=== PATIENT | female | born 1960 | race African-American/Black ===

== ENCOUNTER 2021-10-01 00:40 | Outpatient (CLI) | payer MEDICARE | END 2021-10-01 00:41 | disposition left against medical advice (07) | LOC: EMS 00:40 | DX: M79.652 Pain in left thigh (principal); W22.8XXA Striking against or struck by other objects, initial encounter; Y93.H2 Activity, gardening and landscaping; Y92.009 Unspecified place in unspecified non-institutional (private) residence as the place of occurrence of the external cause ==

== ENCOUNTER 2021-10-01 17:22 | Emergency (ER) | payer MEDICARE ==
--- NOTE | 2021-10-01 17:42 | ED Physician Documentation ---
PD HPI ABD PAIN - Stated complaint Stated Complaint: L SIDE PX - Chief complaint Chief Complaint: Trauma Abd - History obtained from History obtained from: Patient - Additional information Additional information: 61-year-old woman with history of diabetes was cutting branches yesterday and a large branch hit her in the left mid abdomen and she had increasing pain there overnight. Sensation of difficulty urinating but no hematuria. She is nauseous with it. She declines pain and/or nausea medicine on initial evaluation. Review of Systems Constitutional: reports: Reviewed and negative Eyes: reports: Reviewed and negative Nose: reports: Reviewed and negative Throat: reports: Reviewed and negative Cardiac: reports: Reviewed and negative PD PAST MEDICAL HISTORY - Present Medications Home Medications: Ambulatory Orders Medication Instructions Recorded Confirmed Lisinopril [Zestril] 10 mg PO DAILY 10/01/21 10/01/21 Simvastatin [Zocor] 20 mg PO DAILY 10/01/21 10/01/21 metFORMIN [Glucophage] 1,000 mg PO BIDWM 10/01/21 10/01/21 - Allergies Allergies/Adverse Reactions: Allergies Allergy/AdvReac Type Severity Reaction Status Date / Time amoxicillin Allergy Anxiety Verified 10/01/21 17:26 PD ED PE NORMAL - Vitals Vital signs reviewed: Yes - General General: Alert and oriented X 3, No acute distress - Abdomen Abdomen: Normal bowel sounds, Soft, Other (Tender in the left mid abdomen and left lower quadrant without surgical signs, there is no rib tenderness.) - Back Back: No CVA TTP, No spinal TTP - Derm Derm: Normal color, Warm and dry - Extremities Extremities: No deformity, No tenderness to palpate, Normal ROM s pain, No edema, No calf tenderness / cord - Neuro Neuro: Alert and oriented X 3, Normal speech Results - Vitals Vitals: Vital Signs - 24 hr 10/01/21 10/01/21 17:26 19:09 Temperature 36.5 C 36.4 C L Heart Rate 80 61 Respiratory 16 16 Rate Blood Pressure 145/63 H 129/58 L O2 Saturation 100 100 Oxygen O2 Source Room air - Labs Labs: Laboratory Tests 10/01/21 10/01/21 17:55 17:55 WBC 6.2 RBC 4.94 Hgb 13.5 Hct 43.0 MCV 87.0 MCH 27.3 MCHC 31.4 L RDW 13.6 Plt Count 203 MPV 9.9 Neut # (Auto) 3.0 Lymph # (Auto) 2.5 [place] # (Auto) 0.6 Eos # (Auto) 0.1 Baso # (Auto) 0.0 Absolute Nucleated RBC 0.00 Nucleated RBC % 0.0 Sodium 139 Potassium 3.9 Chloride 105 Carbon Dioxide 25 Anion Gap 9.0 BUN 13 Creatinine 0.7 Estimated GFR (MDRD) 85 L Glucose 155 H Calcium 9.5 - Rads (name of study) CT abdomen and pelvis, no trauma but incidental findings including fatty liver and pelvic varicose veins were discussed with patient Radiology: EMP read contemporaneously PD MEDICAL DECISION MAKING - ED course ED course: 61-year-old woman with an abdominal trauma with worsening pain. CT negative for acute findings. She declined medications for symptoms. Departure - Departure Disposition: 01 Home, Self Care Clinical Impression: Abdominal wall contusion Qualifiers: Encounter type: initial encounter Qualified Code(s): S30.1XXA - Contusion of abdominal wall, initial encounter Condition: Good Record reviewed to determine appropriate education?: Yes Instructions: ED Abdominal Injury Blunt Benign Comments: As discussed, the CT does not show any evidence of serious trauma. We did find the have fatty liver which you are already aware of and to the varicose veins in your pelvis. No specific follow-up is required for those. Return if worsening or if not better over the next couple of days. Discharge Date/Time: 10/01/21 19:12
[2021-10-01] MEDS ORDERED: IOVERSOL 320 100 ML VIAL IVP ONE ×2 (17:55→18:38)
[2021-10-01 18:04] LABS: BASOPHILS % (AUTO) 0.5 %; EOSINOPHILS # (AUTO) 0.1 10^3/uL (0.0-0.7); EOSINOPHILS % (AUTO) 1.6 %; HGB - HEMOGLOBIN 13.5 g/dL (12.0-16.0); LYMPHOCYTES # (AUTO) 2.5 10^3/uL (1.5-3.5); MEAN CORPUSCULAR HEMOGLOBIN 27.3 pg (27.0-31.0); MEAN CORPUSCULAR HGB CONC 31.4 g/dL (32.0-36.0); MEAN PLATELET VOLUME 9.9 fL (7.9-10.8); MONOCYTES # (AUTO) 0.6 10^3/uL (0.0-1.0); MONOCYTES % (AUTO) 8.9 %; NEUTROPHILS % (AUTO) 48.8 %; PLT - PLATELET COUNT 203 10^3/uL (130-450); RED BLOOD COUNT 4.94 10^6/uL (4.20-5.40); RED CELL DISTRIBUTION WIDTH 13.6 % (12.0-15.0); WHITE BLOOD COUNT 6.2 x10^3/uL (4.8-10.8)
[2021-10-01 18:12] LABS: CALCIUM 9.5 mg/dL (8.5-10.3); CREATININE 0.7 mg/dL (0.4-1.0); POTASSIUM 3.9 mmol/L (3.5-5.0)
--- NOTE | 2021-10-01 18:52 | CT Report ---
PROCEDURE: Abdomen/Pelvis W INDICATIONS: IV only, left abdominal trauma CONTRAST: IV CONTRAST: Optiray 320 ml: 100 PO CONTRAST: *NO PO CONTRAST TECHNIQUE: After the administration of intravenous contrast, 5 mm thick sections acquired from the diaphragms to the symphysis. 5 mm thick coronal and sagittal reformats were acquired. For radiation dose reducti on, the following was used: automated exposure control, adjustment of mA and/or kV according to ousmane ent size. COMPARISON: None. FINDINGS: Image quality: Excellent. ABDOMEN: Lung bases: Lung bases are clear. Heart size is normal. Solid organs: Mild hepatomegaly. Moderate diffuse hepatic steatosis. Spleen is unremarkable. Gallblad celeste is unremarkable. Biliary system is non dilated. Pancreas enhances normally. No adrenal nodules . Kidneys demonstrate normal size and enhancement, without hydronephrosis. Peritoneum and bowel: Bowel loops demonstrate normal wall thickness and caliber. No free fluid or a ir. Mild diverticulosis. Nodes and vessels: No retroperitoneal or mesenteric adenopathy by size criteria. Aorta and inferior vena cava are normal in size. 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 Miscellaneous: No ventral hernias. PELVIS: Genitourinary: Bladder wall thickness is normal. Miscellaneous: No inguinal hernias or adenopathy. Bones: No suspicious bony lesions. No vertebral body compression fractures. IMPRESSION: 1. No evidence of acute abdominal process. 2. No findings indicative of significant sequelae of acute abdominal trauma. 3. Mild hepatomegaly, moderate diffuse hepatic steatosis. 4. 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 Reviewed by: Subhash Hernandez MD on 10/01/2021 6:51 PM PDT Approved by: Subhash Hernandez MD on 10/01/2021 6:51 PM PDT Station ID: [id number]
[2021-10-01 19:09] VITALS: BP 129/58
== END 2021-10-01 19:12 | disposition home or self-care (01) ==
LOC: ED 17:22
DX: S30.1XXA Contusion of abdominal wall, initial encounter (principal); W20.8XXA Other cause of strike by thrown, projected or falling object, initial encounter; Y93.H2 Activity, gardening and landscaping
CPT/HCPCS: 36415; 74177; 80048; 85025; 99282; 99284; Q9967

== ENCOUNTER 2021-10-30 02:36 | Emergency (ER) | payer MEDICARE ==
[2021-10-30] MEDS ORDERED: METOCLOPRAMIDE 10 MG/2 ML VIAL IVP STA (02:59)
[2021-10-30] MEDS ORDERED: SODIUM CHLORIDE 0.9% 1,000 ML IV STA (02:59)
[2021-10-30] MEDS ORDERED: KETOROLAC 30 MG/ML VIAL IVP STA (02:59)
[2021-10-30] MEDS ORDERED: diphenhydrAMINE INJ 50 MG/ML VIAL IVP STA (03:00)
--- NOTE | 2021-10-30 03:21 | ED Physician Documentation ---
PD HPI HEADACHE - Stated complaint Stated Complaint: HEADACHE - Chief complaint Chief Complaint: Neuro - History obtained from History obtained from: Patient - Additional information Additional information: Patient is a 61-year-old female with a history significant for migraines, hypertension, hyperlipidemia, diabetes presenting for evaluation of a headache since yesterday morning. Patient reports that the night before she had not slept well and woke up with a pressure type headache around the front of her head. She has not taken anything for the headache today. She reports mild associated nausea. She reports having migraines in the past but it is been almost 20 years. She says that this is not the worst headache of her life. She Denies any head trauma and does not take blood thinners. Nothing makes the headache better or worse. She was having trouble sleeping again tonight and presented to the emergency department for evaluation. She denies recent illness with fever, cough, congestion, chest pain or difficulty breathing. No abdominal pain, neck pain or back pain. Review of Systems Constitutional: denies: Fever Nose: denies: Congestion Cardiac: denies: Chest pain / pressure, Palpitations Respiratory: denies: Dyspnea, Cough GI: reports: Nausea. denies: Abdominal Pain, Vomiting : denies: Dysuria Skin: denies: Rash Neurologic: reports: Headache. denies: Head injury PD PAST MEDICAL HISTORY - Past Medical History Past Medical History: Yes Cardiovascular: Hypertension, High cholesterol Respiratory: None, Asthma Neuro: Migraines Endocrine/Autoimmune: Type 2 diabetes GI: GERD CRO: None : None HEENT: None, Other Psych: None Musculoskeletal: Osteoporosis Derm: None - Past Surgical History Past Surgical History: Yes Ortho: Shoulder arthroplasty /CRO: Other - Present Medications Home Medications: Ambulatory Orders Medication Instructions Recorded Confirmed Lisinopril [Zestril] 10 mg PO DAILY 10/01/21 10/30/21 Simvastatin [Zocor] 20 mg PO DAILY 10/01/21 10/30/21 metFORMIN [Glucophage] 1,000 mg PO BIDWM 10/01/21 10/30/21 - Allergies Allergies/Adverse Reactions: Allergies Allergy/AdvReac Type Severity Reaction Status Date / Time amoxicillin Allergy Anxiety Verified 10/01/21 17:26 - Social History Does the pt smoke?: No Smoking Status: Never smoker Does the pt drink ETOH?: No Does the pt have substance abuse?: No - Immunizations Immunizations are current?: Yes - POLST Patient has POLST: No PD ED PE NORMAL - General General: Alert and oriented X 3, No acute distress, Well developed/nourished - HEENT HEENT: Atraumatic, PERRL, EOMI, Ears normal, Pharynx benign - Neck Neck: Supple, no meningeal sign, No bony TTP - Cardiac Cardiac: RRR, No murmur, Strong equal pulses - Respiratory Respiratory: No respiratory distress, Clear bilaterally - Abdomen Abdomen: Normal bowel sounds, Soft, Non tender - Derm Derm: Normal color - Extremities Extremities: No deformity - Neuro Neuro: Alert and oriented X 3, pharmacometrician 2-12 intact, No motor deficit, No sensory deficit, Normal speech, Other (Normal unassisted gait) - Psych Psych: Normal mood Results - Vitals Vitals: Vital Signs - 24 hr 10/30/21 10/30/21 10/30/21 02:43 03:22 03:50 Temperature 36.7 C Heart Rate 68 62 59 L Respiratory 18 14 18 Rate Blood Pressure 153/76 H 125/66 138/72 H O2 Saturation 95 100 99 10/30/21 04:15 Temperature 37.0 C Heart Rate 64 Respiratory 16 Rate Blood Pressure 136/70 H O2 Saturation 100 Oxygen O2 Source Room air PD MEDICAL DECISION MAKING - ED course Complexity details: re-evaluated patient, d/w patient ED course: Patient presenting for evaluation of headache. Has a history of migraines. This is not her worst headache. Neuro exam is normal. Doubt meningitis, subarachnoid hemorrhage, stroke, intracranial bleed, Dissection.Patient had significant improvement in her symptoms with migraine cocktail. She was advised on strict return precautions. She was ambulatory at discharge. 0320 - Patient is driving her home and not able to get another ride. Nurses already given Toradol and Reglan.Patient declining Benadryl as it may cause drowsiness. 0358 - Feeling better Departure - Departure Disposition: 01 Home, Self Care Clinical Impression: Headache Qualifiers: Headache type: tension-type Headache chronicity pattern: acute headache Intractability: not intractable Qualified Code(s): G44.209 - Tension-type headache, unspecified, not intractable Condition: Stable Instructions: ED Cephalgia Unspecified Comments: Luciana - You were evaluated for a headache today. You received medications through an IV Help you with your pain. 1 of these medications was an anti- inflammatory medication similar to ibuprofen. The other was a medication to help with nausea.Received IV fluids. Please continue to hydrate yourself And you can also use medications such as ibuprofen or Tylenol if the pain is starting to come back. Please get plenty of rest. Please follow-up with your primary care doctor. Please return to the emergency department with worsening or any concerning symptoms such as fever, neck stiffness, vomiting. Discharge Date/Time: 10/30/21 04:20
[2021-10-30 04:21] VITALS: BP 136/70
== END 2021-10-30 04:20 | disposition home or self-care (01) ==
LOC: ED 02:36
DX: G44.209 Tension-type headache, unspecified, not intractable (principal); I10 Essential (primary) hypertension
CPT/HCPCS: 96374; 96375; 99282; 99283; J1200; J2765

== ENCOUNTER 2022-01-09 20:41 | Emergency (ER) | payer MEDICARE ==
[2022-01-09] MEDS ORDERED: METOCLOPRAMIDE 10 MG/2 ML VIAL IVP STA (21:11)
[2022-01-09] MEDS ORDERED: KETOROLAC 15 MG/ML VIAL IVP STA (21:11)
[2022-01-09 21:24] LABS: BILIRUBIN,URINE NEGATIVE (NEGATIVE); GLUCOSE, URINE (UA) NEGATIVE (NEGATIVE); KETONES,URINE (UA) NEGATIVE (NEGATIVE); LEUKOCYTE ESTERASE, URINE SMALL (NEGATIVE); NITRITE,URINE NEGATIVE (NEGATIVE); OCCULT BLOOD,URINE NEGATIVE (NEGATIVE); PROTEIN,URINE NEGATIVE (NEGATIVE); UROBILINOGEN,URINE 0.2 (NORMAL) E.U./dL (NORMAL)
--- NOTE | 2022-01-09 21:28 | ED Physician Documentation ---
History of Present Illness - Stated complaint Stated Complaint: HEADACHE - Chief complaint Chief Complaint: Neuro - History obtained from History obtained from: Patient - History of Present Illness Timing: How many days ago (5) - Additonal information Additional information: 61-year-old female presents for several complaints. Patient states that she has had a left-sided headache for the last 5 days as well as left-sided facial tingling. Patient is additionally complaining of concentrated smelling urine. She states that she initially thought that it was related to her GERD, and spoke with her GI doctor about it, however he told her at that time he did not think it was related to her acid reflux. Patient went to an outside ED earlier today, however the wait was too long and she left and presented here instead. Patient states "it feels that my brain is not getting enough oxygen". She states that when she tried to go to sleep she had a startling sensation and felt like she was out of her body. No medications taken at home for symptoms. Denies blurred vision, slurred speech, numbness, weakness, difficulty ambulating, other complaints at this time. Review of Systems Ten Systems: 10 systems reviewed and negative Constitutional: denies: Fever, Chills, Myalgias Eyes: denies: Loss of vision, Photophobia Ears: denies: Loss of hearing, Ear pain, Drainage/discharge Cardiac: denies: Palpitations, Pedal edema Respiratory: denies: Dyspnea, Cough, Wheezing GI: denies: Abdominal Pain, Nausea, Vomiting, Constipation, Diarrhea : reports: Dysuria. denies: Frequency, Hesitancy, Unable to Void Skin: denies: Rash Musculoskeletal: denies: Neck pain, Back pain, Extremity pain Neurologic: reports: Headache, Other (facial tingling). 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: Other - Present Medications Home Medications: Ambulatory Orders Medication Instructions Recorded Confirmed Lisinopril [Zestril] 10 mg PO DAILY 10/01/21 12/28/21 Simvastatin [Zocor] 20 mg PO DAILY 10/01/21 12/28/21 metFORMIN [Glucophage] 1,000 mg PO BIDWM 10/01/21 12/28/21 Alendronate Sodium 35 mg PO Q7D 12/28/21 12/28/21 Lansoprazole [Prevacid] 30 mg PO BID 12/28/21 12/28/21 Sucralfate [Carafate] 1 gm PO ACHS #60 tablet 12/28/21 - Allergies Allergies/Adverse Reactions: Allergies Allergy/AdvReac Type Severity Reaction Status Date / Time amoxicillin Allergy Anxiety Verified 12/28/21 21:10 - Social History Does the pt smoke?: No Smoking Status: Never smoker Does the pt drink ETOH?: No Does the pt have substance abuse?: No - Immunizations Immunizations are current?: Yes - POLST Patient has POLST: No PD ED PE NORMAL - Vitals Vital signs reviewed: Yes - General General: Alert and oriented X 3, No acute distress, Well developed/nourished - HEENT HEENT: Atraumatic, PERRL, EOMI, Ears normal - Neck Neck: Supple, no meningeal sign, No bony TTP, No adenopathy - Cardiac Cardiac: RRR, No rub, Strong equal pulses - Respiratory Respiratory: No respiratory distress, Clear bilaterally - Abdomen Abdomen: Soft, Non tender, Non distended - Back Back: No CVA TTP, No spinal TTP - Derm Derm: Normal color, Warm and dry, No rash - Extremities Extremities: No deformity, No tenderness to palpate, Normal ROM s pain, No edema, No calf tenderness / cord - Neuro Neuro: Alert and oriented X 3, recycling manager 2-12 intact, No motor deficit, No sensory deficit, Normal speech - Psych Psych: Normal mood, Normal affect Results - Vitals Vitals: Vital Signs - 24 hr 01/09/22 01/09/22 01/09/22 20:45 20:49 22:33 Temperature 36.3 C L 36.5 C 36.5 C Heart Rate 71 71 68 Respiratory 18 18 16 Rate Blood Pressure 163/72 H 163/72 H 140/72 H O2 Saturation 97 97 98 Oxygen O2 Source Room air - EKG (time done) 2120 Rate: Rate (enter#) (65) Rhythm: NSR [place]: Normal Intervals: Normal DC QRS: Normal - Labs Labs: Laboratory Tests 01/09/22 01/09/22 01/09/22 21:16 21:36 21:36 WBC 6.1 RBC 5.10 Hgb 13.8 Hct 44.3 MCV 86.9 MCH 27.1 MCHC 31.2 L RDW 13.7 Plt Count 184 MPV 9.8 Neut # (Auto) 2.5 Lymph # (Auto) 2.8 [place] # (Auto) 0.6 Eos # (Auto) 0.2 Baso # (Auto) 0.0 Absolute Nucleated RBC 0.00 Nucleated RBC % 0.0 Sodium 143 Potassium 3.9 Chloride 106 Carbon Dioxide 29 Anion Gap 8.0 BUN 15 Creatinine 0.8 Estimated GFR (MDRD) 88 L Glucose 148 H Calcium 9.6 Total Bilirubin 0.6 AST 30 ALT 29 Alkaline Phosphatase 110 Total Protein 7.6 Albumin 4.1 Globulin 3.5 Albumin/Globulin Ratio 1.2 Urine Color YELLOW Urine Clarity CLEAR Urine pH 6.0 Ur Specific [place] >=1.030 H Urine Protein NEGATIVE Urine Glucose (UA) NEGATIVE Urine Ketones NEGATIVE Urine Occult Blood NEGATIVE Urine Nitrite NEGATIVE Urine Bilirubin NEGATIVE Urine Urobilinogen 0.2 (NORMAL) Ur Leukocyte Esterase SMALL H Urine RBC 0-5 Urine WBC 6-10 H Ur Squamous Epith Cells MANY Squamous H Urine Bacteria Few Ur Microscopic Review INDICATED Urine Culture Comments NOT INDICATED PD MEDICAL DECISION MAKING - ED course Complexity details: reviewed results, re-evaluated patient, considered differential, d/w patient ED course: Patient presenting for numerous symptoms. Reports headache and facial numbness/tingling, however NIH is 0, no focal neurologic deficit noted on exam. Additionally patient symptoms have been greater then 1 week. Not stroke alert candidate or tPA candidate. Will treat headache and will scan brain given that patient has had 1 week of headache and denies history of regular headaches. Medications given for headache. Patient states that it feels like her brain is not getting enough oxygen, however vital signs are completely within normal limits and there is no evidence of hypoxemia at this time. Labs are unremarkable. CT brain shows possible remote infarct, however not consistent with patient's current symptoms. No previous CT scans for comparison. At this time we do not have MRI at our facility. Patient was notified of her abnormal CT brain results, she was counseled to follow-up with her primary care physician for further investigation of this matter. Counseled Tylenol and Motrin as needed for symptoms, counseled plenty of fluids and rest. Departure - Departure Disposition: 01 Home, Self Care Clinical Impression: Abnormal brain CT Headache Qualifiers: Headache type: unspecified Headache chronicity pattern: unspecified pattern Intractability: not intractable Qualified Code(s): R51.9 - Headache, unspecified Condition: Stable Instructions: ED Headache Tension Comments: Take Tylenol and Motrin at home as needed for headache. Drink plenty of fluids, get plenty of rest. Your brain CT today showed a possible old stroke, however I do not think that this is related to your symptoms today. Please follow up immediately with your primary care physician for further investigation of your abnormal CT findings Discharge Date/Time: 01/09/22 22:33
[2022-01-09 21:30] LABS: CLARITY,URINE CLEAR (CLEAR); RBC,URINE 0-5 /HPF (0-5)
[2022-01-09 21:31] LABS: BACTERIA,URINE Few /HPF (None Seen); SQUAMOUS EPITHELIAL CELL,UR MANY Squamous (<= Few)
--- NOTE | 2022-01-09 21:38 | XRAY Report ---
PROCEDURE: Chest 1 View X-Ray INDICATIONS: 'NOT GETTING ENOUGH OXYGEN' TECHNIQUE: One view of the chest was acquired. COMPARISON: None FINDINGS: Surgical changes and devices: None. Lungs and pleura: No pleural effusions or pneumothorax. Lungs are clear. Mediastinum: Mediastinal contours appear normal. Heart size is normal. Bones and chest wall: No suspicious bony lesions. Overlying soft tissues appear unremarkable. IMPRESSION: No acute cardiopulmonary process demonstrated radiographically. Reviewed by: Twin Quinonez MD on 01/09/2022 9:36 PM PDT Approved by: Twin Quinonez MD on 01/09/2022 9:36 PM PDT Station ID: [id number]
[2022-01-09 21:43] LABS: BASOPHILS % (AUTO) 0.3 %; EOSINOPHILS # (AUTO) 0.2 10^3/uL (0.0-0.7); EOSINOPHILS % (AUTO) 2.6 %; HCT - HEMATOCRIT 44.3 % (37.0-47.0); HGB - HEMOGLOBIN 13.8 g/dL (12.0-16.0); LYMPHOCYTES # (AUTO) 2.8 10^3/uL (1.5-3.5); LYMPHOCYTES % (AUTO) 46.1 %; MEAN CORPUSCULAR HEMOGLOBIN 27.1 pg (27.0-31.0); MEAN CORPUSCULAR HGB CONC 31.2 g/dL (32.0-36.0); MEAN CORPUSCULAR VOLUME 86.9 fL (81.0-99.0); MEAN PLATELET VOLUME 9.8 fL (7.9-10.8); MONOCYTES # (AUTO) 0.6 10^3/uL (0.0-1.0); MONOCYTES % (AUTO) 9.6 %; NEUTROPHILS # (AUTO) 2.5 10^3/uL (1.5-6.6); NEUTROPHILS % (AUTO) 41.2 %; PLT - PLATELET COUNT 184 10^3/uL (130-450); RED CELL DISTRIBUTION WIDTH 13.7 % (12.0-15.0); WHITE BLOOD COUNT 6.1 x10^3/uL (4.8-10.8)
[2022-01-09 21:56] LABS: ALBUMIN 4.1 g/dL (3.2-5.5); ALBUMIN/GLOBULIN RATIO 1.2 (1.0-2.2); BILIRUBIN,TOTAL 0.6 mg/dL (0.2-1.0); CALCIUM 9.6 mg/dL (8.5-10.3); CREATININE 0.8 mg/dL (0.4-1.0); POTASSIUM 3.9 mmol/L (3.5-5.0); TOTAL PROTEIN 7.6 g/dL (6.7-8.2)
--- NOTE | 2022-01-09 22:05 | CT Report ---
PROCEDURE: HEAD WO INDICATIONS: Headache, face tingling for one week TECHNIQUE: Noncontrast 4.5 mm thick angled axial sections acquired from the foramen magnum to the vertex. For r adiation dose reduction, the following was used: automated exposure control, adjustment of mA and/or kV according to patient size. COMPARISON: None. FINDINGS: There is no acute intracranial hemorrhage, abnormal extra-axial fluid collection, mass effect, or mid line shift. Normal ventricular caliber and position. Patent basilar cisterns. Donnelly-white matter diffe rentiation is maintained. Possible remote tiny right caudate lacunar infarct. Paranasal sinuses and m astoid air cells clear where visualized. No acute orbital abnormality in the [id number]. IMPRESSION: No acute intracranial finding. Reviewed by: Twin Quinonez MD on 01/09/2022 10:04 PM PDT Approved by: Twin Quinonez MD on 01/09/2022 10:04 PM PDT Station ID: [id number]
[2022-01-09 22:35] VITALS: BP 140/72
== END 2022-01-09 22:33 | disposition home or self-care (01) ==
LOC: ED 20:41
DX: R51.9 Headache, unspecified (principal); R94.8 Abnormal results of function studies of other organs and systems; I10 Essential (primary) hypertension; E11.9 Type 2 diabetes mellitus without complications; Z79.4 Long term (current) use of insulin
CPT/HCPCS: 36415; 70450; 71045; 80053; 81001; 85025; 93005; 96374; 96375; 99282; 99284; J2765; 81003; 87086

== ENCOUNTER 2022-07-08 15:43 | Emergency (ER) | payer MEDICARE ==
[2022-07-08 15:59] VITALS: BP 160/73
--- NOTE | 2022-07-08 16:20 | ED Physician Documentation ---
History of Present Illness - Stated complaint Stated Complaint: DIGESTED OVEN OFF SPRAY - Chief complaint Chief Complaint: Abd Pain - History obtained from History obtained from: Patient - Additonal information Additional information: Patient is a 62-year-old female presenting for evaluation of accidental ingestion of easy off oven carbon cleaner this morning around 10:00. She had sprayed a pot and left it in her kitchen 2 days ago. This morning her went to make biscuits and gravy and rinsed out the pot but per likely did not use soap and clean all the residue from the oven carbon cleaner and used it to make the sausage gravy. When she was eating her breakfast she thought there was an abnormal taste to it but was able to eat it without issue. Her also ate the same food. This afternoon when she went back into the kitchen she realized that he had used the pot that she had used the oven carbon cleaner on and was concerned as he does not usually wash dishes well. Her again ate the same food and denies any symptoms and did not want to come to the emergency department. 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: Other - Present Medications Home Medications: Ambulatory Orders Medication Instructions Recorded Confirmed Lisinopril [Zestril] 10 mg PO DAILY 10/01/21 12/28/21 Simvastatin [Zocor] 20 mg PO DAILY 10/01/21 12/28/21 metFORMIN [Glucophage] 1,000 mg PO BIDWM 10/01/21 12/28/21 Alendronate Sodium 35 mg PO Q7D 12/28/21 12/28/21 Lansoprazole [Prevacid] 30 mg PO BID 12/28/21 12/28/21 Sucralfate [Carafate] 1 gm PO ACHS #60 tablet 12/28/21 - Allergies Allergies/Adverse Reactions: Allergies Allergy/AdvReac Type Severity Reaction Status Date / Time amoxicillin Allergy Anxiety Verified 07/08/22 15:58 - Social History Does the pt smoke?: No Smoking Status: Never smoker Does the pt drink ETOH?: No Does the pt have substance abuse?: No - Immunizations Immunizations are current?: Yes - POLST Patient has POLST: No PD ED PE NORMAL - General General: Alert and oriented X 3, No acute distress, Well developed/nourished - HEENT HEENT: Atraumatic, Moist mucous membranes, Pharynx benign (No oral lesions or signs of caustic injury) - Neck Neck: Supple, no meningeal sign - Cardiac Cardiac: RRR, No murmur - Respiratory Respiratory: No respiratory distress, Clear bilaterally - Abdomen Abdomen: Soft, Non tender - Derm Derm: Warm and dry - Neuro Neuro: Normal speech Results - Vitals Vitals: Vital Signs - 24 hr 07/08/22 15:54 Temperature 36.4 C L Heart Rate 64 Respiratory 16 Rate Blood Pressure 160/73 H O2 Saturation 98 Oxygen O2 Source Room air PD Medical Decision Making - ED course ED course: Patient evaluated after an accidental ingestion of oven carbon cleaner. This occurred approximately 6 hours ago. Patient appears asymptomatic and has no abnormal physical exam findings. No signs of caustic injury on oral exam.Abdominal exam is benign.Poison control was contacted and also had low concerns that there would be serious injury from this accidental ingestion.Patient counseled to continue with supportive care and advised on concerning symptoms to return for. Departure - Departure Disposition: 01 Home, Self Care Clinical Impression: Accidental ingestion of substance Condition: Stable Instructions: ED Overdose Accidental Comments: At this time there does not appear to be an adverse effects from your accidental ingestion. I would continue with your Regular diet. Return to the ER with any worsening symptoms. Discharge Date/Time: 07/08/22 16:39
== END 2022-07-08 16:39 | disposition home or self-care (01) ==
LOC: ED 15:43
DX: T65.891A Toxic effect of other specified substances, accidental (unintentional), initial encounter (principal); Y92.009 Unspecified place in unspecified non-institutional (private) residence as the place of occurrence of the external cause
CPT/HCPCS: 99281; 99282

== ENCOUNTER 2022-10-11 12:30 | Outpatient (CLI) | payer MEDICARE | END 2022-10-11 12:45 | disposition home or self-care (01) | LOC: LAB.N 12:30 | PROVIDERS: ATTEND Registered Nurse | DX: R35.0 Frequency of micturition (principal); R82.79 Other abnormal findings on microbiological examination of urine; R53.83 Other fatigue; R53.81 Other malaise; N12 Tubulo-interstitial nephritis, not specified as acute or chronic | CPT/HCPCS: 87086 ==

== ENCOUNTER 2022-10-15 17:25 | Emergency (ER) | payer MEDICARE ==
[2022-10-15 18:12] LABS: BILIRUBIN,URINE NEGATIVE (NEGATIVE); GLUCOSE, URINE (UA) NEGATIVE (NEGATIVE); KETONES,URINE (UA) NEGATIVE (NEGATIVE); LEUKOCYTE ESTERASE, URINE TRACE (NEGATIVE); NITRITE,URINE NEGATIVE (NEGATIVE); OCCULT BLOOD,URINE NEGATIVE (NEGATIVE); PROTEIN,URINE NEGATIVE (NEGATIVE); UROBILINOGEN,URINE 0.2 (NORMAL) E.U./dL (NORMAL)
[2022-10-15 18:13] LABS: CLARITY,URINE CLEAR (CLEAR)
[2022-10-15 18:17] LABS: BASOPHILS % (AUTO) 0.4 %; EOSINOPHILS # (AUTO) 0.2 10^3/uL (0.0-0.7); EOSINOPHILS % (AUTO) 2.4 %; HCT - HEMATOCRIT 45.4 % (37.0-47.0); HGB - HEMOGLOBIN 13.7 g/dL (12.0-16.0); LYMPHOCYTES # (AUTO) 3.8 10^3/uL (1.5-3.5); LYMPHOCYTES % (AUTO) 53.8 %; MEAN CORPUSCULAR HEMOGLOBIN 26.3 pg (27.0-31.0); MEAN CORPUSCULAR HGB CONC 30.2 g/dL (32.0-36.0); MEAN CORPUSCULAR VOLUME 87.1 fL (81.0-99.0); MEAN PLATELET VOLUME 9.4 fL (7.9-10.8); MONOCYTES # (AUTO) 0.7 10^3/uL (0.0-1.0); MONOCYTES % (AUTO) 10.6 %; NEUTROPHILS # (AUTO) 2.3 10^3/uL (1.5-6.6); NEUTROPHILS % (AUTO) 32.7 %; PLT - PLATELET COUNT 203 10^3/uL (130-450); RED BLOOD COUNT 5.21 10^6/uL (4.20-5.40); RED CELL DISTRIBUTION WIDTH 13.6 % (12.0-15.0)
[2022-10-15 18:20] LABS: BACTERIA,URINE Few /HPF (None Seen); RBC,URINE 0-5 /HPF (0-5); SQUAMOUS EPITHELIAL CELL,UR MANY Squamous (<= Few)
[2022-10-15 18:29] LABS: ALBUMIN 4.2 g/dL (3.2-5.5); ALBUMIN/GLOBULIN RATIO 1.2 (1.0-2.2); BILIRUBIN,TOTAL 0.4 mg/dL (0.2-1.0); CALCIUM 9.5 mg/dL (8.5-10.3); CREATININE 0.9 mg/dL (0.4-1.0); POTASSIUM 4.3 mmol/L (3.5-5.0); TOTAL PROTEIN 7.8 g/dL (6.7-8.2)
[2022-10-15] MEDS ORDERED: BUTALB/ACETAM/CAFF 50/325/40MG TABLET PO STA (19:54)
--- NOTE | 2022-10-15 19:59 | ED Physician Documentation ---
History of Present Illness - Stated complaint Stated Complaint: HEADACHE,PRESSURE AROUND EYES - Chief complaint Chief Complaint: Abd Pain - History obtained from History obtained from: Patient - History of Present Illness Timing: How many weeks ago (2) Pain level max: 6 Pain level now: 6 - Additonal information Additional information: 62-year-old female with a longstanding history of migraine headaches presents to the emergency department with a headache for the past 2 weeks. She states she took aspirin once without relief. No fevers. No chills. No trauma. No head injury. No seizure activity. Feels similar to prior migraines. She states that she was also told that she had a "kidney infection". She was started on Bactrim about 5 days ago. She states she is not having any urinary symptoms and had low back pain earlier but that is improved. No vaginal bleeding or discharge. Headache was gradual in onset, mainly on the right side, occasionally has numbness and tingling to the face, similar to prior migraines. Sometimes the numbness and tingling is on the right, sometimes is on the left. Patient had a head CT in December 2021 for similar symptoms. 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 TRANSFERRING AND BOXING: Other - Present Medications Home Medications: Ambulatory Orders Medication Instructions Recorded Confirmed Lisinopril [Zestril] 10 mg PO DAILY 10/01/21 12/28/21 Simvastatin [Zocor] 20 mg PO DAILY 10/01/21 12/28/21 metFORMIN [Glucophage] 1,000 mg PO BIDWM 10/01/21 12/28/21 Alendronate Sodium 35 mg PO Q7D 12/28/21 12/28/21 Lansoprazole [Prevacid] 30 mg PO BID 12/28/21 12/28/21 Sucralfate [Carafate] 1 gm PO ACHS #60 tablet 12/28/21 - Allergies Allergies/Adverse Reactions: Allergies Allergy/AdvReac Type Severity Reaction Status Date / Time amoxicillin Allergy Anxiety Verified 07/08/22 15:58 - Social History Does the pt smoke?: No Smoking Status: Never smoker Does the pt drink ETOH?: No Does the pt have substance abuse?: No - Immunizations Immunizations are current?: Yes - POLST Patient has POLST: No PD ED PE NORMAL - Vitals Vital signs reviewed: Yes - General General: Alert and oriented X 3, No acute distress - HEENT HEENT: Atraumatic, PERRL, EOMI, Moist mucous membranes, Pharynx benign - Neck Neck: Supple, no meningeal sign - Cardiac Cardiac: RRR, Strong equal pulses - Respiratory Respiratory: No respiratory distress, Clear bilaterally - Abdomen Abdomen: Soft, Non tender, Non distended - Back Back: No CVA TTP, No spinal TTP - Derm Derm: Warm and dry - Extremities Extremities: No edema - Neuro Neuro: Alert and oriented X 3, trench trimmer fine 2-12 intact, No motor deficit, No sensory deficit, Normal speech Eye Opening: Spontaneous Motor: Obeys Commands Verbal: Oriented GCS Score: 15 - Psych Psych: Normal mood, Normal affect Results - Vitals Vitals: Vital Signs - 24 hr 10/15/22 10/15/22 10/15/22 17:52 19:25 21:08 Temperature 36.1 C L Heart Rate 61 57 L 59 L Respiratory 16 18 20 Rate Blood Pressure 132/77 H 153/76 H 131/65 H O2 Saturation 96 100 99 Oxygen O2 Source Room air - Labs Labs: Laboratory Tests 10/15/22 10/15/22 10/15/22 18:03 18:11 18:11 WBC 7.0 RBC 5.21 Hgb 13.7 Hct 45.4 MCV 87.1 MCH 26.3 L MCHC 30.2 L RDW 13.6 Plt Count 203 MPV 9.4 Neut # (Auto) 2.3 Lymph # (Auto) 3.8 H Rush # (Auto) 0.7 Eos # (Auto) 0.2 Baso # (Auto) 0.0 Absolute Nucleated RBC 0.00 Nucleated RBC % 0.0 Sodium 142 Potassium 4.3 Chloride 106 Carbon Dioxide 28 Anion Gap 8.0 BUN 12 Creatinine 0.9 Estimated GFR (MDRD) 77 L Glucose 97 Calcium 9.5 Total Bilirubin 0.4 AST 40 ALT 39 Alkaline Phosphatase 89 Total Protein 7.8 Albumin 4.2 Globulin 3.6 Albumin/Globulin Ratio 1.2 Lipase 68 H Urine Color YELLOW Urine Clarity CLEAR Urine pH 6.0 Ur Specific [place] >=1.030 H Urine Protein NEGATIVE Urine Glucose (UA) NEGATIVE Urine Ketones NEGATIVE Urine Occult Blood NEGATIVE Urine Nitrite NEGATIVE Urine Bilirubin NEGATIVE Urine Urobilinogen 0.2 (NORMAL) Ur Leukocyte Esterase TRACE H Urine RBC 0-5 Urine WBC 6-10 H Ur Squamous Epith Cells MANY Squamous H Urine Bacteria Few Ur Microscopic Review INDICATED Urine Culture Comments NOT INDICATED PD Medical Decision Making - ED course Complexity details: reviewed results, re-evaluated patient, considered differential, d/w patient ED course: No acute findings on laboratory testing. CBC does not show any elevated white blood cell count. Chemistry does not show any significant abnormalities. Urinalysis appears contaminated. Recent urine culture showed no growth. No evidence of pyelonephritis clinically or on laboratory studies. He was given Fioricet and headache improved. She refuses any other medications for headache. We will have her follow-up with her doctor for further care. No focal neurological deficits. Patient counseled regarding signs and symptoms for which I believe and urgent re-evaluation would be necessary. Patient with good understanding of and agreement to plan and is comfortable going home at this time This document was made in part using voice recognition software. While efforts are made to proofread this document, sound alike and grammatical errors may occur. Departure - Departure Disposition: 01 Home, Self Care Clinical Impression: Migraine Qualifiers: Migraine type: unspecified Status migrainosus presence: without status migrainosus Intractability: not intractable Qualified Code(s): G43.909 - Migraine, unspecified, not intractable, without status migrainosus Condition: Good Instructions: ED Headache Migraine Follow-Up: your,doctor in 1 week [Other] Comments: Please follow-up with your doctor for further care. Go home and rest tonight. The Bactrim as your urine culture did not have any bacterial growth. Drink plenty of fluids. Return if you worsen. Discharge Date/Time: 10/15/22 21:09
[2022-10-15 21:09] VITALS: BP 131/65
== END 2022-10-15 21:09 | disposition home or self-care (01) ==
LOC: ED 17:25
DX: G43.909 Migraine, unspecified, not intractable, without status migrainosus (principal)
CPT/HCPCS: 36415; 80053; 81001; 83690; 85025; 99283; A9270; 81003; 87086

== ENCOUNTER 2022-12-02 02:47 | Emergency (ER) | payer MEDICARE ==
[2022-12-02 03:27] LABS: BILIRUBIN,URINE NEGATIVE (NEGATIVE); CLARITY,URINE CLEAR (CLEAR); GLUCOSE, URINE (UA) NEGATIVE (NEGATIVE); KETONES,URINE (UA) NEGATIVE (NEGATIVE); LEUKOCYTE ESTERASE, URINE TRACE (NEGATIVE); NITRITE,URINE NEGATIVE (NEGATIVE); OCCULT BLOOD,URINE NEGATIVE (NEGATIVE); PROTEIN,URINE NEGATIVE (NEGATIVE); UROBILINOGEN,URINE 0.2 (NORMAL) E.U./dL (NORMAL)
[2022-12-02 03:32] LABS: BACTERIA,URINE Few /HPF (None Seen); RBC,URINE 0-5 /HPF (0-5); SQUAMOUS EPITHELIAL CELL,UR FEW Squamous (<= Few)
[2022-12-02 03:34] LABS: BASOPHILS % (AUTO) 0.8 %; EOSINOPHILS # (AUTO) 0.2 10^3/uL (0.0-0.7); EOSINOPHILS % (AUTO) 3.1 %; HCT - HEMATOCRIT 43.3 % (37.0-47.0); HGB - HEMOGLOBIN 13.5 g/dL (12.0-16.0); LYMPHOCYTES # (AUTO) 2.9 10^3/uL (1.5-3.5); MEAN CORPUSCULAR HEMOGLOBIN 26.5 pg (27.0-31.0); MEAN CORPUSCULAR HGB CONC 31.2 g/dL (32.0-36.0); MEAN CORPUSCULAR VOLUME 84.9 fL (81.0-99.0); MEAN PLATELET VOLUME 9.5 fL (7.9-10.8); MONOCYTES # (AUTO) 0.5 10^3/uL (0.0-1.0); MONOCYTES % (AUTO) 9.6 %; NEUTROPHILS # (AUTO) 1.5 10^3/uL (1.5-6.6); NEUTROPHILS % (AUTO) 29.3 %; PLT - PLATELET COUNT 173 10^3/uL (130-450); RED CELL DISTRIBUTION WIDTH 13.6 % (12.0-15.0); WHITE BLOOD COUNT 5.1 x10^3/uL (4.8-10.8)
[2022-12-02 03:46] LABS: ALBUMIN 3.8 g/dL (3.2-5.5); ALBUMIN/GLOBULIN RATIO 1.2 (1.0-2.2); BILIRUBIN,TOTAL 0.4 mg/dL (0.2-1.0); CALCIUM 8.9 mg/dL (8.5-10.3); CREATININE 0.8 mg/dL (0.4-1.0); POTASSIUM 3.6 mmol/L (3.5-5.0); TOTAL PROTEIN 7.1 g/dL (6.7-8.2)
--- NOTE | 2022-12-02 04:16 | ED Physician Documentation ---
History of Present Illness - Stated complaint Stated Complaint: HEADACHE/STIFFINESS NECK - Chief complaint Chief Complaint: General - History obtained from History obtained from: Patient - Additonal information Additional information: HPI from patient. Patient c/o global headache which woke her from sleep at approximately 2 AM, associated with GERD and dizziness. Also c/o midline burning chest pain. She says she has had both similar headaches and similar chest discomfort in the past. Her symptom description is vague, often returns to saying I just feel weird, and I dont feel right. No exacerbating nor ameliorating factors Review of Systems Constitutional: denies: Fever Cardiac: reports: Chest pain / pressure. denies: Palpitations, Pedal edema Respiratory: reports: Reviewed and negative GI: reports: Nausea. 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 PRODUCTION SPECIALIST: Other - Present Medications Home Medications: Ambulatory Orders Medication Instructions Recorded Confirmed Lisinopril [Zestril] 10 mg PO DAILY 10/01/21 12/28/21 Simvastatin [Zocor] 20 mg PO DAILY 10/01/21 12/28/21 metFORMIN [Glucophage] 1,000 mg PO BIDWM 10/01/21 12/28/21 Alendronate Sodium 35 mg PO Q7D 12/28/21 12/28/21 Lansoprazole [Prevacid] 30 mg PO BID 12/28/21 12/28/21 Sucralfate [Carafate] 1 gm PO ACHS #60 tablet 12/28/21 - Allergies Allergies/Adverse Reactions: Allergies Allergy/AdvReac Type Severity Reaction Status Date / Time amoxicillin Allergy Anxiety Verified 07/08/22 15:58 - Social History Does the pt smoke?: No Smoking Status: Never smoker Does the pt drink ETOH?: No Does the pt have substance abuse?: No - Immunizations Immunizations are current?: Yes - POLST Patient has POLST: No PD ED PE NORMAL - Vitals Vital signs reviewed: Yes - General General: Alert and oriented X 3, No acute distress, Well developed/nourished - HEENT HEENT: PERRL, EOMI, Moist mucous membranes - Neck Neck: Supple, no meningeal sign - Cardiac Cardiac: RRR, No murmur, No gallop, No rub - Respiratory Respiratory: No respiratory distress, Clear bilaterally - Abdomen Abdomen: Soft, Non tender - Extremities Extremities: No edema - Neuro Neuro: Alert and oriented X 3, compensation manager 2-12 intact, No motor deficit, No sensory deficit, Normal speech Eye Opening: Spontaneous Motor: Obeys Commands Verbal: Oriented GCS Score: 15 Results - Vitals Vitals: Oxygen O2 Source Room air - EKG (time done) No standard instances EKG releavant findings:: EKG personally interpreted by author of this note. Relevant findings are: Rate: Rate (enter#) (52) Rhythm: NSR [place]: Normal Intervals: Normal [place] QRS: Normal Ischemia: Normal ST segments - Labs Labs: Microbiology 12/02/22 03:15 Urine Culture - Final Urine,Clean Catch No growth Laboratory Tests 12/02/22 12/02/22 12/02/22 02:58 03:15 03:29 WBC 5.1 RBC 5.10 Hgb 13.5 Hct 43.3 MCV 84.9 MCH 26.5 L MCHC 31.2 L RDW 13.6 Plt Count 173 MPV 9.5 Neut # (Auto) 1.5 Lymph # (Auto) 2.9 [place] # (Auto) 0.5 Eos # (Auto) 0.2 Baso # (Auto) 0.0 Absolute Nucleated RBC 0.00 Nucleated RBC % 0.0 Sodium Potassium Chloride Carbon Dioxide Anion Gap BUN Creatinine Estimated GFR (MDRD) Glucose POC Whole Bld Glucose 160 H Calcium Total Bilirubin AST ALT Alkaline Phosphatase Troponin I High Sens Total Protein Albumin Globulin Albumin/Globulin Ratio Lipase Urine Color YELLOW Urine Clarity CLEAR Urine pH 6.0 Ur Specific [place] 1.010 Urine Protein NEGATIVE Urine Glucose (UA) NEGATIVE Urine Ketones NEGATIVE Urine Occult Blood NEGATIVE Urine Nitrite NEGATIVE Urine Bilirubin NEGATIVE Urine Urobilinogen 0.2 (NORMAL) Ur Leukocyte Esterase TRACE H Urine RBC 0-5 Urine WBC 4-5 Ur Squamous Epith Cells FEW Squamous Urine Bacteria Few Ur Microscopic Review INDICATED Urine Culture Comments INDICATED 12/02/22 12/02/22 03:29 03:29 WBC RBC Hgb Hct MCV MCH MCHC RDW Plt Count MPV Neut # (Auto) Lymph # (Auto) [place] # (Auto) Eos # (Auto) Baso # (Auto) Absolute Nucleated RBC Nucleated RBC % Sodium 139 Potassium 3.6 Chloride 109 Carbon Dioxide 25 Anion Gap 5.0 L BUN 15 Creatinine 0.8 Estimated GFR (MDRD) 88 L Glucose 140 H POC Whole Bld Glucose Calcium 8.9 Total Bilirubin 0.4 AST 34 ALT 36 Alkaline Phosphatase 93 Troponin I High Sens < 2.3 L Total Protein 7.1 Albumin 3.8 Globulin 3.3 Albumin/Globulin Ratio 1.2 Lipase 80 H Urine Color Urine Clarity Urine pH Ur Specific [place] Urine Protein Urine Glucose (UA) Urine Ketones Urine Occult Blood Urine Nitrite Urine Bilirubin Urine Urobilinogen Ur Leukocyte Esterase Urine RBC Urine WBC Ur Squamous Epith Cells Urine Bacteria Ur Microscopic Review Urine Culture Comments - Rads (name of study) chest xray Relevant Findings:: Prelim report reviewed, EMP independent interpretation of test (I reviewed these images and my intepretation is no acute disease, normal heart size), See rad report CTH Relevant Findings:: Prelim report reviewed, See rad report PD Medical Decision Making - ED course Complexity details: reviewed results, re-evaluated patient, considered differential, d/w patient ED course: Tests ordered and results reviewed by me: CBC, ER abdominal panel, hs-cTn, EKG, UA, CXR, CTH. Blood tests are normal including negative hs-cTn (<2.3). CXR , EKG, and CTH also without abnormality. Etiology of patients symptoms is not apparent at this time. On reevaluation, test results are reviewed. She declines analgesia, says the headache has improved spontaneously and chest pain resolved. Advised to follow up with PMD for reevaluation. Return precautions reviewed. Departure - Departure Disposition: 01 Home, Self Care Clinical Impression: Chest pain Qualifiers: Chest pain type: unspecified Qualified Code(s): R07.9 - Chest pain, unspecified Headache Qualifiers: Headache type: unspecified Headache chronicity pattern: acute headache Intractability: not intractable Qualified Code(s): R51.9 - Headache, unspecified Condition: Good Instructions: ED Chest Pain Atypical Unkn Cause, ED Cephalgia Unspecified Comments: There were no concerning or diagnostic findings on tonight's tests, including the chest x-ray, CAT scan of your head, EKG, and the blood test. The cause of your symptoms not apparent at this time, but there is no indication, based on these test, of a dangerous/concerning underlying problem. Even though the test results are reassuring, it is important that you contact your primary care provider to arrange for next available appointment for follow- up/reevaluation. Further testing might be indicated whether or not your symptoms persist. Discharge Date/Time: 12/02/22 08:11
[2022-12-02 08:03] VITALS: BP 151/96
--- NOTE | 2022-12-02 08:07 | CT Report ---
PROCEDURE: HEAD WO INDICATIONS: headache TECHNIQUE: Noncontrast 4.5 mm thick angled axial sections acquired from the foramen magnum to the vertex. For r adiation dose reduction, the following was used: automated exposure control, adjustment of mA and/or kV according to patient size. COMPARISON: None. FINDINGS: Image quality: Excellent. CSF spaces: Basal cisterns are patent. No extra-axial fluid collections. Ventricles are normal in size and shape. Brain: No midline shift. No intracranial masses or hemorrhage. Donnelly-white matter interface is norm al. Skull and face: Calvarium and visualized facial bones are intact, without suspicious lesions. Sinuses: Visualized sinuses and mastoids are clear. IMPRESSION: No acute intracranial abnormality. Reviewed by: Jeff García MD on 12/02/2022 8:05 AM PDT Approved by: Jeff García MD on 12/02/2022 8:05 AM PDT Station ID: [id number]
--- NOTE | 2022-12-02 08:35 | XRAY Report ---
PROCEDURE: Chest 2 View X-Ray INDICATIONS: chest pain TECHNIQUE: 2 views of the chest were acquired. COMPARISON: CXR 01/09/2022. FINDINGS: Surgical changes and devices: None. Lungs and pleura: No pleural effusions or pneumothorax. Lungs are clear. Mediastinum: Mediastinal contours appear normal. Heart size is normal. Bones and chest wall: No suspicious bony lesions. Overlying soft tissues appear unremarkable. IMPRESSION: No acute cardiopulmonary process. Reviewed by: Jeff García MD on 12/02/2022 8:33 AM PDT Approved by: Jeff García MD on 12/02/2022 8:33 AM PDT Station ID: [id number]
== END 2022-12-02 08:11 | disposition home or self-care (01) ==
LOC: ED 02:47
DX: R07.9 Chest pain, unspecified (principal); R51.9 Headache, unspecified; I10 Essential (primary) hypertension; E78.00 Pure hypercholesterolemia, unspecified; E11.9 Type 2 diabetes mellitus without complications; Z79.84 Long term (current) use of oral hypoglycemic drugs; Z79.899 Other long term (current) drug therapy
CPT/HCPCS: 36415; 80053; 81001; 81003; 83690; 84484; 85025; 87086; 93005; 99283; 99284

== ENCOUNTER 2023-01-16 19:48 | Outpatient (CLI) | payer OTHER, MEDICARE | END 2023-01-16 19:49 | disposition critical access hospital (66) | LOC: EMS 19:48 | DX: R51.9 Headache, unspecified (principal) | CPT/HCPCS: A0425; A0429 ==

== ENCOUNTER 2023-01-16 20:01 | Emergency (ER) | payer OTHER, MEDICARE ==
[2023-01-16] MEDS ORDERED: METOCLOPRAMIDE 10 MG/2 ML VIAL IVP STA (20:09)
[2023-01-16] MEDS ORDERED: SODIUM CHLORIDE 0.9% 1,000 ML IV STA (20:09)
[2023-01-16] MEDS ORDERED: diphenhydrAMINE INJ 50 MG/ML VIAL IVP STA (20:09)
[2023-01-16] MEDS ORDERED: LIDOCAINE VISCOUS 2% 15 ML ORAL SYRINGE MM STA (20:10)
[2023-01-16] MEDS ORDERED: MAG HYDROX/AL HYDROX/SIMETH 30 ML UDC PO STA (20:10)
--- NOTE | 2023-01-16 21:45 | CT Report ---
PROCEDURE: HEAD WO INDICATIONS: ROGEL TECHNIQUE: Noncontrast 4.5 mm thick angled axial sections acquired from the foramen magnum to the vertex. For r adiation dose reduction, the following was used: automated exposure control, adjustment of mA and/or kV according to patient size. COMPARISON: CT head 12/02/2022. FINDINGS: Image quality: Excellent. CSF spaces: Basal cisterns are patent. No extra-axial fluid collections. Ventricles are normal in size and shape. Brain: No intracranial hemorrhage, mass, or mass effect. Donnelly-white matter interface appears preser brijesh. Skull and face: Calvarium and visualized facial bones are intact, without suspicious lesions. Sinuses: Visualized sinuses and mastoids are clear. IMPRESSION: 1. No acute intracranial abnormality. Reviewed by: Michael Faith MD on 01/16/2023 9:44 PM PDT Approved by: Michael Faith MD on 01/16/2023 9:44 PM PDT Station ID: [id number]
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
[2023-01-16 22:19] VITALS: BP 129/68
== END 2023-01-16 22:10 | disposition home or self-care (01) ==
LOC: EDUNIT# → ED 20:01
DX: R51.9 Headache, unspecified (principal); V49.50XA Passenger injured in collision with unspecified motor vehicles in traffic accident, initial encounter; Y92.410 Unspecified street and highway as the place of occurrence of the external cause; I10 Essential (primary) hypertension; E78.00 Pure hypercholesterolemia, unspecified; E11.9 Type 2 diabetes mellitus without complications; Z79.84 Long term (current) use of oral hypoglycemic drugs; Z79.899 Other long term (current) drug therapy
CPT/HCPCS: 70450; 96374; 99282; 99284; J1200; J2765

== ENCOUNTER 2023-04-24 13:30 | Outpatient (CLI) | payer MEDICARE | END 2023-04-24 13:31 | disposition EMS.NT | LOC: EMS 13:30 | DX: R07.89 Other chest pain (principal); M25.512 Pain in left shoulder; R51.9 Headache, unspecified ==